=== PATIENT | male | born 1970 | race Caucasian/White ===

== ENCOUNTER 2021-11-02 10:52 | Observation (INO) | payer OTHER ==
[~2021-11-02] VITALS: Ht 175.3 cm; Wt 82.5 kg
[2021-11-02] MEDS ORDERED: ASPI81TA26 PO (11:04)
[2021-11-02 12:06] LABS: BASO # 0.1 10^3/uL (0.0-0.2); BASO % 1.5 % (0.0-1.0); EOS # 0.1 10^3/uL (0.0-0.5); EOS % 1.6 % (0.0-3.0); HEMATOCRIT 42.9 % (42.0-52.0); HEMOGLOBIN 14.2 g/dl (13.5-17.5); LYMPH # 2.7 10^3/uL (1.5-5.0); LYMPH % 44.5 % (24.0-44.0); MEAN CORPUSCULAR HEMOGLOBIN 28.7 pg (27.0-33.0); MEAN CORPUSCULAR HGB CONC 33.1 g/dl (32.0-36.5); MEAN CORPUSCULAR VOLUME 86.7 fl (80.0-96.0); MONO # 0.4 10^3/uL (0.0-0.8); MONO % 6.5 % (2.0-8.0); NEUTROPHILS # 2.8 10^3/uL (1.5-8.5); NEUTROPHILS % 45.6 % (36.0-66.0); PLATELET COUNT, AUTOMATED 273 10^3/uL (150-450); RED BLOOD COUNT 4.95 10^6/uL (4.30-6.10); WHITE BLOOD COUNT 6.1 10^3/uL (4.0-10.0)
[2021-11-02 12:20] LABS: INR 0.92; PROTHROMBIN TIME 12.8 SECONDS (12.7-14.5)
[2021-11-02 12:21] LABS: PARTIAL THROMBOPLASTIN TIME 27.8 SECONDS (25.9-37.0)
[2021-11-02 12:38] LABS: CPK CREATINE PHOSPHOKINASE 181 U/L (39-308)
[2021-11-02 12:48] LABS: RSV AMPLIFICATION NEGATIVE (NEGATIVE)
[2021-11-02 12:50] LABS: BLOOD UREA NITROGEN 16 MG/DL (7-18); CARBON DIOXIDE LEVEL 27 MEQ/L (21-32); CHLORIDE LEVEL 108 MEQ/L (98-107); CREATININE FOR GFR 0.94 MG/DL (0.70-1.30); GLOMERULAR FILTRATION RATE > 60.0 (>56); GLUCOSE, FASTING 95 MG/DL (70-100); POTASSIUM SERUM 4.4 MEQ/L (3.5-5.1); SODIUM LEVEL 141 MEQ/L (136-145)
[2021-11-02 12:51] LABS: CALCIUM LEVEL 9.5 MG/DL (8.5-10.1)
[2021-11-02] MEDS ORDERED: HOME MED LIST COMPLETE! XX SCH (15:00)
[2021-11-02] MEDS ORDERED: ACETAMINOPHEN TAB 650MG DOSE (2X325MG) PO PRN (15:15)
[2021-11-02 16:35] VITALS: BP 155/98
[2021-11-02 20:00] VITALS: BP 128/84
[2021-11-02 22:00] VITALS: BP 128/84
[2021-11-03 06:00] VITALS: BP 114/80
[2021-11-03 07:01] LABS: CHOLESTEROL RISK RATIO 3.4 (<5)
[2021-11-03 07:30] LABS: HEMOGLOBIN A1c 5.6 %
[2021-11-03] MEDS ORDERED: ATORVASTATIN 20 MG TAB PO SCH (09:00)
[2021-11-03] MEDS ORDERED: ASPIRIN 325 MG TAB PO SCH (09:00)
[2021-11-03] MEDS ORDERED: ASPI-1 PO (10:03)
[2021-11-03] MEDS ORDERED: ATOR40TA75 PO (10:03)
== END 2021-11-03 12:30 | disposition home or self-care (01) ==
LOC: M ED 10:52 → M ED INP 15:11 → ENRESERV 15:58 → M MSPAV 16:35
PROVIDERS: ADMIT Internal Medicine; ATTEND Internal Medicine
DX: G45.9 Transient cerebral ischemic attack, unspecified (principal); R29.700 NIHSS score 0; I10 Essential (primary) hypertension; Z79.82 Long term (current) use of aspirin; Z82.49 Family history of ischemic heart disease and other diseases of the circulatory system